=== PATIENT | female | born 1970 | race Caucasian/White ===

== ENCOUNTER 2017-03-01 09:16 | Emergency (ER) | payer BC, OTHER ==
[2017-03-01 09:26] VITALS: BMI 27.3
[2017-03-01] MEDS ORDERED: morphine CARPU-JECT 4 MG/1 ML DISP.SYRIN IVPUSH ONE ×2 (09:39→10:57)
[2017-03-01] MEDS ORDERED: ONDANSETRON 4 MG/2 ML VIAL IVPUSH ONE (09:39)
[2017-03-01] MEDS ORDERED: SODIUM CHLORIDE 1,000 ML IV STA (09:39)
--- NOTE | 2017-03-01 09:45 | PDOC ---
History of Present Illness - General Chief Complaint: Pain, Acute Stated Complaint: ABD PAIN (REFERRED) Time Seen by Provider: 03/01/17 09:32 History Source: Patient - History of Present Illness Timing/Duration: reports: constant Quality: reports: severe Abdominal Pain Onset Location: reports: RLQ Pain Radiation: reports: no radiation Past History - Past Medical History Allergies/Adverse Reactions: Allergies Allergy/AdvReac Type Severity Reaction Status Date / Time No Known Allergies Allergy Verified 03/01/17 09:22 Home Medications: Ambulatory Orders Ciprofloxacin HCl [Cipro] 500 mg PO BID 03/01/17 Insulin (Novolog) [Novolog Vial] 0 units SQ DAILY 03/01/17 Lisinopril 10 mg PO DAILY 03/01/17 Metronidazole [Flagyl -] 500 mg PO TID 03/01/17 Rosuvastatin Calcium [Crestor] 40 mg PO DAILY 03/01/17 Tramadol HCl 50 mg PO Q6H #30 tablet MDD 200 mg 03/01/17 Diabetes: Yes (D/T PANCREATITIS) GI Disorders: Yes (PANCREATITIS) HTN: Yes Hypercholesterolemia: Yes - Immunization History Immunization Up to Date: Yes - Psycho/Social/Smoking Cessation Hx Anxiety: No Suicidal Ideation: No Smoking History: Former smoker Have you smoked in the past 12 months: No Number of Cigarettes Smoked Daily: 7 If you are a former smoker, when did you quit?: 2012 Information on smoking cessation initiated: No Hx Alcohol Use: No Drug/Substance Use Hx: No Review of Systems - Review of Systems Constitutional: No: Chills, Fever ABD/GI: Yes: Diarrhea, Nausea, Abdominal cramping. No: Blood Streaked Bowels, Vomiting : No: Dysuria *Physical Exam - Vital Signs Last Vital Signs Temp Pulse Resp BP Pulse Ox 98.7 F 74 16 164/95 98 03/01/17 09:22 03/01/17 09:22 03/01/17 09:22 03/01/17 09:22 03/01/17 09:22 - Physical Exam General Appearance: Yes: Appropriately Dressed. No: Apparent Distress HEENT: positive: Normal Voice Neck: positive: Supple Respiratory/Chest: negative: Respiratory Distress Gastrointestinal/Abdominal: positive: Normal Bowel Sounds, Tender (to RLQ), Soft. negative: Distended, Guarding, Rebound Musculoskeletal: negative: CVA Tenderness Extremity: positive: Normal Inspection Integumentary: positive: Dry, Warm Neurologic: positive: Fully Oriented, Alert, Normal Mood/Affect ED Treatment Course - LABORATORY CBC & Chemistry Diagram: 03/01/17 10:10 03/01/17 10:15 - RADIOLOGY Radiology Studies Ordered: Category Date Time Status ABDOMEN & PELVIS CT WITH CONTR [CT] Stat CT Scan 03/01/17 09:40 Ordered Medical Decision Making - Medical Decision Making 03/01/17 09:40 46-year-old female, history of IDDM, pancreatitis, here with abd pain. Patient reports 3 days of siva-umbilical pain initially that has since localized to RLQ with nausea and possible diarrhea. No vomiting, fever, chills, dysuria or hematuria. Patient reports she went to [facility] 2 days ago and had a non- contrast CT and was told there were no abnormal findings but uncertain if the radiologist even saw the appendix given limitation without any IV/PO contrast per patient. Was told her white count was elevated, but that does not remember to how high and sent home on Cipro, Flagyl, which she has been taking for the past 2 days but states pain persists. No h/o renal stone See exam Persistent RLQ pain Had leukocytosis w/ normal non-contrast CT 2 days ago at [facility] per pt (has no records on her person) On cipro/flagyl Stable and in NAD w/ sig ttp to RLQ, no guarding/rebound and no CVAT -pain control -IVF -labs -Will rpt CT w/ IV contrast today 03/01/17 09:45 03/01/17 15:25 CT neg for appy but shows narrowed terminal ileum w/ possible fistula in area C/ F possible crohn's. Non-emergent GI f/u w/ MRI or CT enterography recommended. CT findings discussed with patient. Denies any long-standing GI issues or family history of IBD. States pain improved earlier but now coming back. Will continue to control pain in ED and discuss recs and dispo w/ GI 03/01/17 15:35 03/01/17 16:28 03/01/17 16:39 Case d/w Dr Hunter of GI, states is pt feeling better and afebrile, can be discharged to f/u as out-pt w/ Dr Mccrary. 03/01/17 16:40 Pt feeling better and tolerating po currently. I contacted Dr Mccrary's office and made appt for pt with MD for 03/29 at 3:30 pm. Pt aware that if symptoms persist and /or worsen prior to then, to return to ED immediately. Will have pt complete abx given at . Rx for pain meds sent to pharmacy 03/01/17 16:43 03/01/17 16:49 *DC/Admit/Observation/Transfer Diagnosis at time of Disposition: RLQ abdominal pain - Discharge Dispostion Disposition: HOME Condition at time of disposition: Improved - Prescriptions Prescriptions: Tramadol HCl 50 mg PO Q6H #30 tablet MDD 200 mg - Referrals Referrals: Sandra Almazan [Primary Care Provider] - - Patient Instructions Printed Discharge Instructions: DI for Abdominal Pain-Adult Additional Instructions: Please follow up with Dr mccrary on 03/29 at 3:30pm at [phone] Alternatively, you can also call the member number on the back of your insurance card and get a list of GI providers, and try to make a sooner appointment If symptoms persist and or worsen, return to ED immediately. Take medications as directed
[2017-03-01] MEDS ORDERED: ONDANSETRON 4 MG/2 ML VIAL ONE (09:52)
[2017-03-01] MEDS ORDERED: morphine CARPU-JECT 2 MG/1 ML DISP.SYRIN ONE ×2 (09:52→11:01)
[2017-03-01 10:28] LABS: BASOPHIL 0.6 % (0-2.0); EOSINOPHIL 0.8 % (0-4.5); MCH 28.4 pg (25.7-33.7); MEAN CELL VOLUME 83.6 fl (80-96); MEAN PLT VOLUME 8.8 fl (7.5-11.1); NEUTROPHILS 67.5 % (42.8-82.8); PLATELET COUNT 245 K/MM3 (134-434); RDW 14.5 % (11.6-15.6); WHITE BLOOD COUNT 9.5 K/mm3 (4.0-10.0)
[2017-03-01 10:49] LABS: ALBUMIN 3.8 g/dl (3.4-5.0)
[2017-03-01 10:57] LABS: ALK PHOS 53 U/L (45-117); ANION GAP 8 (8-16); BILIRUBIN,TOTAL 0.6 mg/dL (0.2-1.0); CALCIUM 9.1 mg/dL (8.5-10.1); CO2 26 mmol/L (21-32); CREATININE 0.6 mg/dL (0.55-1.02); GLUCOSE,RANDOM 125 mg/dL (74-106); SGOT/AST 19 U/L (15-37); SGPT/ALT 31 U/L (12-78); TOT PROT 7.1 g/dl (6.4-8.2)
[2017-03-01 11:26] LABS: URINE APPEARANCE CLEAR; URINE BILIRUBIN NEGATIVE (NEGATIVE); URINE BLOOD NEGATIVE (NEGATIVE); URINE COLOR STRAW; URINE GLUCOSE (UA) NEGATIVE (NEGATIVE); URINE KETONE NEGATIVE (NEGATIVE); URINE LEUK ESTERASE NEGATIVE (NEGATIVE); URINE NITRITE NEGATIVE (NEGATIVE); URINE PROTEIN 1+ (NEGATIVE); URINE UROBILINOGEN NEGATIVE mg/dL (0.2-1.0)
[2017-03-01 11:28] LABS: URINE BACTERIA RARE /hpf (NONE SEEN); URINE MUCUS RARE; URINE WBC <1 /hpf (3-5)
[2017-03-01] MEDS ORDERED: traMADol HCL 50 MG TABLET PO ONE (15:08)
[2017-03-01] MEDS ORDERED: traMADol HCL 50 MG TABLET ONE (15:09)
[2017-03-01 16:54] VITALS: BP 145/89; PULSE 88; TEMP 98.2
--- NOTE | 2017-03-01 16:59 | PDOC ---
*Physical Exam - Vital Signs Last Vital Signs Temp Pulse Resp BP Pulse Ox 98.2 F 88 17 145/89 98 03/01/17 16:53 03/01/17 16:53 03/01/17 16:53 03/01/17 16:53 03/01/17 16:53 ED Treatment Course - LABORATORY CBC & Chemistry Diagram: 03/01/17 10:10 03/01/17 10:15 - ADDITIONAL ORDERS Additional order review: Laboratory Results 03/01/17 03/01/17 03/01/17 11:05 10:15 10:10 INR Sodium 139 Potassium 4.2 Chloride 105 Carbon Dioxide 26 Anion Gap 8 BUN 8 Creatinine 0.6 D Creat Clearance w eGFR > 60 Random Glucose 125 H D Calcium 9.1 Total Bilirubin 0.6 D AST 19 ALT 31 Alkaline Phosphatase 53 Total Protein 7.1 Albumin 3.8 Lipase 127 Urine Color Straw Urine Appearance Clear Urine pH 5.0 Urine Protein 1+ H Urine Glucose (UA) Negative Urine Ketones Negative Urine Blood Negative Urine Nitrite Negative Urine Bilirubin Negative Urine Urobilinogen Negative Urine RBC None Urine WBC <1 Ur Epithelial Cells Rare Urine Bacteria Rare Urine Mucus Rare Urine HCG, Qual Negative Blood Type A POSITIVE Antibody Screen Negative 03/01/17 10:10 INR 1.00 Sodium Potassium Chloride Carbon Dioxide Anion Gap BUN Creatinine Creat Clearance w eGFR Random Glucose Calcium Total Bilirubin AST ALT Alkaline Phosphatase Total Protein Albumin Lipase Urine Color Urine Appearance Urine pH Urine Protein Urine Glucose (UA) Urine Ketones Urine Blood Urine Nitrite Urine Bilirubin Urine Urobilinogen Urine RBC Urine WBC Ur Epithelial Cells Urine Bacteria Urine Mucus Urine HCG, Qual Blood Type Antibody Screen 03/01/17 10:10 RBC 4.52 MCV 83.6 MCHC 34.0 RDW 14.5 D MPV 8.8 Neutrophils % 67.5 Lymphocytes % 25.6 Monocytes % 5.5 Eosinophils % 0.8 Basophils % 0.6 - RADIOLOGY Radiology Studies Ordered: Category Date Time Status ABDOMEN & PELVIS CT WITH CONTR [CT] Stat CT Scan 03/01/17 09:40 Completed - Medications Given in the ED: ED Medications Discontinued Medications Generic Name Dose Route Start Last Admin Trade Name Freq PRN Reason Stop Dose Admin Sodium Chloride 1,000 mls @ 1,000 mls/hr 03/01/17 09:39 03/01/17 10:08 Normal Saline - IV 03/01/17 10:38 1,000 mls/hr ASDIR STA Administration Morphine Sulfate 2 mg 03/01/17 09:39 03/01/17 10:08 Morphine Injection - IVPUSH 03/01/17 09:40 2 mg ONCE ONE Administration Morphine Sulfate 2 mg 03/01/17 10:57 03/01/17 11:17 Morphine Injection - IVPUSH 03/01/17 10:58 2 mg ONCE ONE Administration Ondansetron HCl 4 mg 03/01/17 09:39 03/01/17 10:08 Zofran Injection IVPUSH 03/01/17 09:40 4 mg ONCE ONE Administration Tramadol HCl 50 mg 03/01/17 15:08 03/01/17 15:11 Ultram - PO 03/01/17 15:09 50 mg ONCE ONE Administration *DC/Admit/Observation/Transfer Diagnosis at time of Disposition: RLQ abdominal pain - Discharge Dispostion Disposition: HOME Condition at time of disposition: Improved - Prescriptions Prescriptions: Tramadol HCl 50 mg PO Q6H #30 tablet MDD 200 mg Ondansetron HCl [Zofran] 4 mg PO Q8H #20 tablet - Referrals Referrals: Sandra Almazan [Primary Care Provider] - - Patient Instructions Printed Discharge Instructions: DI for Abdominal Pain-Adult Additional Instructions: Please follow up with Dr mccrary on 03/29 at 3:30pm at [phone] Alternatively, you can also call the member number on the back of your insurance card and get a list of GI providers, and try to make a sooner appointment If symptoms persist and or worsen, return to ED immediately. Take medications as directed - Post Discharge Activity
== END 2017-03-01 17:00 | disposition home or self-care (01) ==
LOC: JER 09:16
PROC: 3E033NZ Introduction of Analgesics, Hypnotics, Sedatives into Peripheral Vein, Percutaneous Approach (ICD-10-PCS; principal; 2017-03-01)
PROC: 3E033GC Introduction of Other Therapeutic Substance into Peripheral Vein, Percutaneous Approach (ICD-10-PCS; 2017-03-01)
DX: R10.31 Right lower quadrant pain (principal); I10 Essential (primary) hypertension; E78.00 Pure hypercholesterolemia, unspecified; E10.9 Type 1 diabetes mellitus without complications; Z79.4 Long term (current) use of insulin; K85.90 Acute pancreatitis without necrosis or infection, unspecified
CPT/HCPCS: 36415; 74177-TC; 80053; 81003; 81015; 83690; 84703; 85025; 85610; 86850; 86900; 86901; 99283-25; Q9967

== ENCOUNTER 2019-05-30 17:27 | Emergency (ER) | payer OTHER, BC ==
[2019-05-30 17:43] VITALS: BP 134/60; PULSE 66; TEMP 98.5; BMI 30.9
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
[2019-05-30] MEDS ORDERED: IBUPROFEN 600 MG TABLET (FP) PO ONE (19:39)
[2019-05-30] MEDS ORDERED: BACITRACIN 15 GM TUBE TOPICAL OINTMENT TP SCH (22:00)
== END 2019-05-30 20:04 | disposition home or self-care (01) ==
LOC: JERFT 17:27
CPT/HCPCS: 73610-TC-LT-FY; 73630-TC-LT; 99281-25

== ENCOUNTER 2022-03-28 16:49 | Emergency (ER) | payer BC ==
[2022-03-28 16:58] VITALS: BP 130/72; PULSE 68; TEMP 98.4; BMI 32.5
[2022-03-28 17:09] VITALS: RESP 20
[2022-03-28 18:04] LABS: BASO % 0.8 % (0-2.0); EOS % 1.3 % (0-4.5); HEMATOCRIT 40.1 % (32.4-45.2); HEMOGLOBIN 13.8 GM/dL (10.7-15.3); MCH 29.2 pg (25.7-33.7); MCHC 34.4 g/dl (32.0-36.0); MEAN CELL VOLUME 84.8 fl (80-96); MEAN PLT VOLUME 8.4 fl (7.5-11.1); MONO % 7.3 % (3.8-10.2); NEUT % 62.6 % (42.8-82.8); PLATELET COUNT 254 10^3/uL (134-434); RBC 4.73 M/mm3 (3.60-5.2); RDW 14.8 % (11.6-15.6); WHITE BLOOD COUNT 11.2 K/mm3 (4.0-10.0)
[2022-03-28 18:27] LABS: ALBUMIN 4.1 g/dl (3.4-5.0); BLOOD UREA NITROGEN 24.1 mg/dL (7-18); CALCIUM 9.8 mg/dL (8.5-10.1)
[2022-03-28 18:31] LABS: BILIRUBIN,TOTAL 0.8 mg/dL (0.2-1); TOT PROT 7.9 g/dl (6.4-8.2)
== END 2022-03-28 18:48 | disposition home or self-care (01) ==
LOC: SUPCPDRO 16:49 → JER 16:49
DX: R79.89 Other specified abnormal findings of blood chemistry (principal)
CPT/HCPCS: 36415; 80053; 83690; 85025; 99283-25

== ENCOUNTER 2024-03-28 07:44 | Emergency (ER) | payer BC ==
[2024-03-28 08:03] VITALS: RESP 20; BMI 34.3
[2024-03-28] MEDS ORDERED: ONDANSETRON 4 MG/2 ML VIAL ONE ×2 (08:55→12:12)
[2024-03-28] MEDS ORDERED: ACETAMINOPHEN INJECTION 100 ML ONE (08:55)
[2024-03-28] MEDS: ACETAMINOPHEN 1000 MG/100 ML BAG IVPB ONE (09:12)
[2024-03-28] MEDS: ONDANSETRON 4 MG/2 ML VIAL IVPUSH ONE ×2 (09:12→12:18)
[2024-03-28] MEDS: SODIUM CHLORIDE 0.9% 500 ML INFUS.BAG IV ONE (09:31)
[2024-03-28 09:39] LABS: BASO % 0.5 % (0-2.0); EOS % 1.1 % (0-4.5); HEMATOCRIT 38.8 % (32.4-45.2); HEMOGLOBIN 13.2 GM/dL (10.7-15.3); LYMPH % 6.9 % (8-40); MCH 28.8 pg (25.7-33.7); MCHC 34.1 g/dl (32.0-36.0); MEAN CELL VOLUME 84.6 fl (80-96); MEAN PLT VOLUME 9.1 fl (7.5-11.1); MONO % 5.9 % (3.8-10.2); NEUT % 85.6 % (42.8-82.8); PLATELET COUNT 243 10^3/uL (134-434); RBC 4.58 M/mm3 (3.60-5.2); RDW 14.3 % (11.6-15.6); WHITE BLOOD COUNT 11.8 K/mm3 (4.0-10.0)
[2024-03-28 09:46] LABS: INR 1.03 (0.83-1.09); PROTHROMBIN TIME (PATIENT) 11.6 SEC (9.7-13.0)
[2024-03-28 09:49] LABS: ACTIVATED PTT 24.8 SECONDS (25.2-36.5)
[2024-03-28 10:09] LABS: POTASSIUM 4.2 mmol/L (3.5-5.1)
[2024-03-28 10:12] LABS: ALBUMIN 3.9 g/dl (3.4-5.0); BLOOD UREA NITROGEN 11.7 mg/dL (7-18); CALCIUM 9.4 mg/dL (8.5-10.1); MAGNESIUM 1.8 mg/dL (1.8-2.4)
[2024-03-28 10:15] LABS: CREATININE 0.8 mg/dL (0.55-1.3)
[2024-03-28 10:16] LABS: TOT PROT 7.3 g/dl (6.4-8.2)
[2024-03-28 10:20] LABS: N-TERMINAL BNP 195.3 pg/ml (5-125)
[2024-03-28 12:12] LABS: HIV INTERPRETATION NEGATIVE (NEGATIVE)
[2024-03-28] MEDS ORDERED: MAG HYDROX/AL HYDROX/SIMETH 30 ML UNIT-DOSE CUP ONE (12:12)
[2024-03-28] MEDS ORDERED: FAMOTIDINE 20 MG/50 ML IVPB 20 MG/50 ML MG IVPB ONE (12:13)
[2024-03-28] MEDS: FAMOTIDINE 20 MG/50 ML IVPB 20 MG/50 ML MG IVPB ONE (12:18)
[2024-03-28] MEDS: MAG HYDROX/AL HYDROX/SIMETH 30 ML UNIT-DOSE CUP PO ONE (12:18)
[2024-03-28 12:34] VITALS: BP 136/60; PULSE 75; TEMP 99.5
[2024-03-28 12:42] LABS: URINE APPEARANCE CLEAR; URINE COLOR YELLOW
[2024-03-28 12:43] LABS: URINE BILIRUBIN NEGATIVE (NEGATIVE); URINE KETONE NEGATIVE (NEGATIVE); URINE LEUK ESTERASE NEGATIVE (NEGATIVE); URINE NITRITE NEGATIVE (NEGATIVE); URINE PROTEIN 1+ (NEGATIVE)
== END 2024-03-28 13:27 | disposition home or self-care (01) ==
LOC: JER 07:44
PROC: 3E033GC Introduction of Other Therapeutic Substance into Peripheral Vein, Percutaneous Approach (ICD-10-PCS; principal; 2024-03-28)
PROC: 3E033GC Introduction of Other Therapeutic Substance into Peripheral Vein, Percutaneous Approach (ICD-10-PCS; 2024-03-28)
PROC: 3E033NZ Introduction of Analgesics, Hypnotics, Sedatives into Peripheral Vein, Percutaneous Approach (ICD-10-PCS; 2024-03-28)
PROC: 3E033GC Introduction of Other Therapeutic Substance into Peripheral Vein, Percutaneous Approach (ICD-10-PCS; 2024-03-28)
DX: R11.2 Nausea with vomiting, unspecified (principal); R05.9 Cough, unspecified; R09.81 Nasal congestion; R50.9 Fever, unspecified; R10.13 Epigastric pain; R07.89 Other chest pain; R00.2 Palpitations; Z20.822 Contact with and (suspected) exposure to COVID-19
CPT/HCPCS: 0241U-QW; 36415; 71045-TC-FY; 80053; 81003; 83690; 83735; 83880; 84484; 85025; 85610; 85730; 86803; 86850; 86900; 86901; 87086; 87389; 93005; 93010; 99285-25; J0131

== ENCOUNTER 2024-11-06 18:05 | Inpatient (IN) | payer BC ==
[2024-11-06 18:16] VITALS: BMI 34.3
[2024-11-06 20:44] LABS: ABSOLUTE IMMATURE GRANULOCYTES 0.03 x10^3/uL (0.0-0.031); BASOPHILS # 0.05 x10^3/uL (0.01-0.08); EOSINOPHIL % 2.3 % (0.7-5.8); EOSINOPHILS # 0.23 x10^3/uL (0.04-0.36); HEMATOCRIT 39.4 % (34.1-44.9); HEMOGLOBIN 13.4 g/dL (11.2-15.7); MEAN CELL VOLUME 88.1 fl (79.4-94.8); MEAN PLT VOLUME 11.3 fl (9.4-12.3); MONOCYTE # 0.55 x10^3/uL (0.24-0.86); MONOCYTE % 5.5 % (4.7-12.5); PLATELET COUNT 236 x10^3/uL (182-369); RDW 12.8 % (12.3-16.6)
[2024-11-06 20:45] LABS: VENOUS BASE EXCESS -0.7 mmol/L (-2-2); VENOUS O2 SATURATION 52.8 % (70-80); VENOUS PCO2 48.5 mmHg (38-52); VENOUS PH 7.341 (7.310-7.410)
[2024-11-06 20:51] LABS: INR 0.97 (0.83-1.09); PROTHROMBIN TIME (PATIENT) 10.7 SEC (9.7-13.0)
[2024-11-06 20:54] LABS: ACTIVATED PTT 30.7 SECONDS (25.2-36.5)
[2024-11-06 21:05] LABS: POTASSIUM 4.3 mmol/L (3.5-5.1)
[2024-11-06 21:07] LABS: ALBUMIN 4.3 g/dl (3.4-5.0); BLOOD UREA NITROGEN 16.2 mg/dL (7-18); CALCIUM 9.9 mg/dL (8.5-10.1); MAGNESIUM 1.7 mg/dL (1.8-2.4)
[2024-11-06 21:10] LABS: CREATININE 0.8 mg/dL (0.55-1.3)
[2024-11-06 21:12] LABS: BILIRUBIN,TOTAL 1.4 mg/dL (0.2-1); TOT PROT 8.4 g/dl (6.4-8.2)
[2024-11-06 21:15] LABS: N-TERMINAL BNP 22.2 pg/ml (5-125)
[2024-11-06] MEDS: ACETAMINOPHEN 500 MG TABLET (FP) PO ONE (22:51)
[2024-11-06] MEDS: ACETAMINOPHEN 1000 MG/100 ML BAG IVPB ONE (23:00)
[2024-11-06] MEDS ORDERED: ACETAMINOPHEN INJECTION 100 ML ONE (23:01)
[2024-11-06] MEDS ORDERED: FUROSEMIDE 40 MG/4 ML INJECTABLE VIAL ONE (23:01)
[2024-11-06] MEDS: FUROSEMIDE 40 MG/4 ML INJECTABLE VIAL IVPUSH ONE (23:22)
[2024-11-07 00:22] LABS: EPI CELLS 3 /uL (0-25.1); HYALINE CASTS 0 /uL (0-3.1); PH,URINE 6.5 (5.0-8.0); URINE APPEARANCE CLEAR; URINE BACTERIA 153 /uL (0-1359); URINE BILIRUBIN NEGATIVE (NEGATIVE); URINE COLOR YELLOW; URINE GLUCOSE (UA) NEGATIVE (NEGATIVE); URINE KETONE NEGATIVE (NEGATIVE); URINE LEUK ESTERASE NEGATIVE (NEGATIVE); URINE NITRITE NEGATIVE (NEGATIVE); URINE PROTEIN 2+ (NEGATIVE); URINE RBC 8 /uL (0-23.9); URINE UROBILINOGEN 0.2 mg/dL (0.2-1.0); URINE WBC 1 /uL (0-25.8)
[2024-11-07] MEDS ORDERED: ALBUTEROL SO4 2.5/IPRATROPIUM 0.5 INH SOL 3 ML VIAL.NEB. NEB ONE (01:00)
[2024-11-07] MEDS ORDERED: predniSONE 20 MG TABLET (UD) ONE (01:00)
[2024-11-07] MEDS: ALBUTEROL SO4 2.5/IPRATROPIUM 0.5 INH SOL 3 ML VIAL.NEB. NEB ONE (01:06)
[2024-11-07] MEDS: predniSONE 20 MG TABLET (UD) PO SCH (01:06)
[2024-11-07] MEDS: INSULIN PUMP - PATIENTS OWN MED NR SCH (01:40)
[2024-11-07 03:09] VITALS: RESP 18
[2024-11-07] MEDS ORDERED: ALBUTEROL SO4 2.5/IPRATROPIUM 0.5 INH SOL 3 ML VIAL.NEB. NEB PRN (06:32)
[2024-11-07] MEDS: ACETAMINOPHEN 325 MG TABLET (FP) PO PRN (06:41)
[2024-11-07] MEDS: ALBUTEROL SO4 2.5/IPRATROPIUM 0.5 INH SOL 3 ML VIAL.NEB. NEB SCH (07:40)
[2024-11-07 08:38] LABS: HEMATOCRIT 38.1 % (34.1-44.9); HEMOGLOBIN 12.8 g/dL (11.2-15.7); MCHC 33.6 g/dl (32.2-35.5); MEAN CELL VOLUME 87.6 fl (79.4-94.8); MEAN PLT VOLUME 11.3 fl (9.4-12.3); PLATELET COUNT 255 x10^3/uL (182-369); RDW 12.9 % (12.3-16.6)
[2024-11-07 08:52] LABS: ALBUMIN 3.8 g/dl (3.4-5.0); BLOOD UREA NITROGEN 14.6 mg/dL (7-18); CALCIUM 9.7 mg/dL (8.5-10.1); MAGNESIUM 1.6 mg/dL (1.8-2.4)
[2024-11-07 08:55] LABS: PHOSPHOROUS 3.3 mg/dL (2.5-4.9)
[2024-11-07 08:57] LABS: TOT PROT 7.6 g/dl (6.4-8.2)
[2024-11-07 08:59] LABS: BILIRUBIN,TOTAL 1.4 mg/dL (0.2-1)
[2024-11-07] MEDS: LISINOPRIL 10 MG TABLET PO SCH (09:53)
[2024-11-07] MEDS: ENOXAPARIN NA (PORCINE) 40 MG/0.4 ML DISP.SYRIN SQ SCH (09:53)
[2024-11-07] MEDS ORDERED: INSULIN (NOVOLOG) ASPART 100 UNITS/ML 10ML VIAL SQ SCH (10:00)
[2024-11-07] MEDS: MAGNESIUM 2GM/50ML STERILE WATER IVPB IVPB ONE (14:35)
[2024-11-07 15:07] LABS: HCV DIAGNOSTIC IN-HOUSE W/RFLX NON-REACTIVE (NONREACTIVE); HIV INTERPRETATION NEGATIVE (NEGATIVE)
[2024-11-07 16:46] VITALS: BP 148/72; PULSE 93; TEMP 98.2
[2024-11-07] MEDS ORDERED: ATORVASTATIN CA 40 MG TABLET (FP) PO SCH (22:00)
== END 2024-11-07 17:25 | disposition home or self-care (01) | DRG 641 ==
LOC: JER 18:05 → JERBED 22:50 → J5S 11-07 01:20
PROVIDERS: ADMIT Internal Medicine
DX: E87.70 Fluid overload, unspecified (principal); R06.02 Shortness of breath; R60.9 Edema, unspecified; I10 Essential (primary) hypertension; E78.5 Hyperlipidemia, unspecified; E11.9 Type 2 diabetes mellitus without complications
CPT/HCPCS: 0241U-QW; 36415; 71046-TC-FY; 71275-TC; 76604; 80053; 81003; 82248; 82550; 82553; 82803; 83036; 83735; 83880; 84100; 84439; 84443; 84484; 84703; 85025; 85610; 85730; 86803; 86850; 86900; 86901; 87040; 87086; 87389; 93005; 93010; 93306-TC; 93308; 93970-TC; 94640; 99285-25; G0378